=== PATIENT | male | born 1955 | race Native Hawaiian/Other Pacific Islander ===

== ENCOUNTER 2017-08-31 15:57 | Observation (INO) | payer BC ==
[~2017-08-31] VITALS: Ht 175.3 cm; Wt 100.7 kg
[2017-08-31 15:56] VITALS: BP 143/101; TEMP 97.2
[2017-08-31 16:24] LABS: PLATELET COUNT 324 K/uL (142-355)
[2017-08-31 16:41] LABS: POTASSIUM 3.2 mmol/L (3.6-5.2); SODIUM 130 mmol/L (136-145)
[2017-08-31 17:00] VITALS: BP 136/97
[2017-08-31 18:00] VITALS: BP 140/89
[2017-08-31 22:16] VITALS: BP 172/102; TEMP 98; Ht 175.3 cm; Wt 100.7 kg
[2017-09-01] VITALS: BP 165/94; TEMP 98.7
[2017-09-01] MEDS ORDERED: LEVO0.0723 PO (00:10)
[2017-09-01] MEDS ORDERED: PRED5TAB3 PO (00:12)
[2017-09-01] MEDS ORDERED: HYDROCHLOROT50 MG PO (00:13)
[2017-09-01 04:00] VITALS: BP 110/59; TEMP 98.3
[2017-09-01 05:45] LABS: POTASSIUM 3.3 mmol/L (3.6-5.2)
[2017-09-01 06:17] LABS: PLATELET COUNT 228 K/uL (142-355)
[2017-09-01 08:00] VITALS: BP 109/65; TEMP 99.1
[2017-09-01 12:00] VITALS: BP 139/85; TEMP 99.9
== END 2017-09-01 15:00 | disposition home or self-care (01) ==
LOC: ED 15:57 → MED/SURG 19:41
DX: K85.80 Other acute pancreatitis without necrosis or infection (principal); I10 Essential (primary) hypertension; E03.8 Other specified hypothyroidism
CPT/HCPCS: 36415; 80053; 82150; 82550; 83690; 84484; 85027; 93005; 96361; 96365; 96366; 96374; 96375; 99220; 99284; G0378; J1170; J2405; Q9963